=== PATIENT | female | born 1945 ===

== ENCOUNTER 2021-11-16 11:39 | Emergency (ER) | payer MEDICARE ==
[2021-11-16] MEDS ORDERED: SODIUM CHLORIDE 0.9% 500 ML 500 ML IV ONE (12:06)
--- NOTE | 2021-11-16 12:10 | Emergency Department Report ---
HPI - General Chief Complaint: Altered Mental Status Time Seen by Provider: 11/16/21 11:53 - HPI HPI: 76-year-old female with history of dementia and depression brought by EMS from a nearby [facility] due to altered mental status/bizarre behavior. Apparently, the patient was transferred from [facility] to the [facility] and has been there for the past 10 days of isolation. She has been cleared to discontinue her isolation and was discharged but the S team that was supposed to transport her refused to do so because the patient became very anxious and was with altered mental status. Every time the patient is asked a question, she starts to answer for about 1 second but then hyperventilates and stops answering. Calls made to the patient's sister, Jordana were apparently unanswered. Her phone number is [phone]. Further details of the HPI are highly limited due to the patient's current clinical condition. ED Past Medical Hx - Past Medical History Previous Medical History?: Yes Additional medical history: UNKNOWN - Medications Home Medications: Home Medications Medication Instructions Recorded Confirmed Last Taken Type Celecoxib [celeBREX] 100 mg PO QDAY 11/16/21 11/16/21 Unknown History Gabapentin 300 mg PO BID 11/16/21 11/16/21 Unknown History Quetiapine Fumarate 25 mg PO TID 11/16/21 11/16/21 Unknown History SEROquel 100 mg PO QHS 11/16/21 11/16/21 Unknown History Vitamin D3 5,000 UNIT 5,000 units PO TID 11/16/21 11/16/21 Unknown History ED Review of Systems ROS: Stated complaint: ALTERED MENTAL STATUS Other details as noted in HPI Comment: Unobtainable due to pts medical conditions Physical Exam - Physical Exam Vital Signs: Vital Signs 11/16/21 11:40 Temperature 98.0 F Pulse Rate 107 H Respiratory 18 Rate Blood Pressure 154/100 [Left] O2 Sat by Pulse 98 Oximetry Physical Exam: GENERAL: Well developed and well nourished. No acute distress HEAD: Normocephalic. No obvious signs of trauma. ENT: Dry mucous membranes. EYES: Extraocular movements are intact. Pupils are equal round and reactive to light bilaterally NECK: Supple. Full ROM is intact. Trachea is midline. LUNGS: Nonlabored breathing. Equal chest rise bilaterally. Clear to auscultation bilaterally. CARDIOVASCULAR: Regular rate and rhythm. No murmurs or rubs. VASCULAR: Cap refill < 2 seconds. 1+ edema of the bilateral lower extremities ABDOMEN: Abdomen is soft and nondistended. There is no significant tenderness, guarding or rebound. SKIN: Skin is warm and dry NEURO: Patient is awake, alert. The patient can state her name but when asked other questions she begins to answer and then mumbles off. She does however follow directions.. 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 No focal deficits. Normal motor and sensory exam throughout. MUSCULOSKELETAL: No obvious deformities. No significant tenderness. Normal ROM throughout. BACK/SPINE: No costovertebral angle tenderness. ED Course Vital Signs 11/16/21 11:40 Temperature 98.0 F Pulse Rate 107 H Respiratory 18 Rate Blood Pressure 154/100 [Left] O2 Sat by Pulse 98 Oximetry ED Medical Decision Making - Lab Data Result diagrams: 11/16/21 13:26 11/17/21 16:47 Lab Results 11/16/21 11/16/21 11/16/21 Range/Units 13:26 13:26 13:26 WBC 8.5 (4.5-11.0) K/mm3 RBC 4.44 (3.65-5.03) M/mm3 Hgb 13.0 (10.1-14.3) gm/dl Hct 39.1 (30.3-42.9) % MCV 88 (79-97) fl MCH 29 (28-32) pg MCHC 33 (30-34) % RDW 12.1 L (13.2-15.2) % Plt Count 274 (140-440) K/mm3 Lymph % (Auto) 16.1 (13.4-35.0) % Lawrence % (Auto) 7.6 H (0.0-7.3) % Eos % (Auto) 0.1 (0.0-4.3) % Baso % (Auto) 0.5 (0.0-1.8) % Lymph # (Auto) 1.4 (1.2-5.4) K/mm3 Lawrence # (Auto) 0.6 (0.0-0.8) K/mm3 Eos # (Auto) 0.0 (0.0-0.4) K/mm3 Baso # (Auto) 0.0 (0.0-0.1) K/mm3 Seg Neutrophils % 75.7 H (40.0-70.0) % Seg Neutrophils # 6.5 (1.8-7.7) K/mm3 Sodium 145 (137-145) mmol/L Potassium 3.2 L (3.6-5.0) mmol/L Chloride 108.8 H (98-107) mmol/L Carbon Dioxide 24 (22-30) mmol/L Anion Gap 15 mmol/L BUN 19 H (7-17) mg/dL Creatinine 0.7 (0.6-1.2) mg/dL Estimated GFR > 60 ml/min BUN/Creatinine Ratio 27 % Glucose 107 H (65-100) mg/dL Calcium 9.3 (8.4-10.2) mg/dL Total Bilirubin (0.1-1.2) mg/dL Direct Bilirubin (0-0.2) mg/dL Indirect Bilirubin mg/dL AST (5-40) units/L ALT (7-56) units/L Alkaline Phosphatase (35-129) units/L Ammonia (25-60) umol/L Total Protein (6.3-8.2) g/dL Albumin (3.9-5) g/dL Albumin/Globulin Ratio % Urine Color (Yellow) Urine Turbidity (Clear) Urine pH (5.0-7.0) Ur Specific [place] (1.003-1.030) Urine Protein (Negative) mg/dL Urine Glucose (UA) (Negative) mg/dL Urine Ketones (Negative) mg/dL Urine Blood (Negative) Urine Nitrite (Negative) Urine Bilirubin (Negative) Urine Urobilinogen (<2.0) mg/dL Ur Leukocyte Esterase (Negative) Urine WBC (Auto) (0.0-6.0) /HPF Urine RBC (Auto) (0.0-6.0) /HPF U Epithel Cells (Auto) (0-13.0) /HPF Urine Bacteria (Auto) (Negative) /HPF Urine Mucus /HPF Salicylates < 0.3 L (2.8-20.0) mg/dL Urine Opiates Screen Urine Methadone Screen Acetaminophen (10.0-30.0) ug/mL Ur Barbiturates Screen Ur Phencyclidine Scrn Ur Amphetamines Screen U Benzodiazepines Scrn Urine Cocaine Screen U Marijuana (THC) Screen Drugs of Abuse Note Plasma/Serum Alcohol (0-0.07) % 11/16/21 11/16/21 11/16/21 Range/Units 13:26 13:26 13:26 WBC (4.5-11.0) K/mm3 RBC (3.65-5.03) M/mm3 Hgb (10.1-14.3) gm/dl Hct (30.3-42.9) % MCV (79-97) fl MCH (28-32) pg MCHC (30-34) % RDW (13.2-15.2) % Plt Count (140-440) K/mm3 Lymph % (Auto) (13.4-35.0) % Lawrence % (Auto) (0.0-7.3) % Eos % (Auto) (0.0-4.3) % Baso % (Auto) (0.0-1.8) % Lymph # (Auto) (1.2-5.4) K/mm3 Lawrence # (Auto) (0.0-0.8) K/mm3 Eos # (Auto) (0.0-0.4) K/mm3 Baso # (Auto) (0.0-0.1) K/mm3 Seg Neutrophils % (40.0-70.0) % Seg Neutrophils # (1.8-7.7) K/mm3 Sodium (137-145) mmol/L Potassium (3.6-5.0) mmol/L Chloride (98-107) mmol/L Carbon Dioxide (22-30) mmol/L Anion Gap mmol/L BUN (7-17) mg/dL Creatinine (0.6-1.2) mg/dL Estimated GFR ml/min BUN/Creatinine Ratio % Glucose (65-100) mg/dL Calcium (8.4-10.2) mg/dL Total Bilirubin 0.70 (0.1-1.2) mg/dL Direct Bilirubin < 0.2 (0-0.2) mg/dL Indirect Bilirubin 0.5 mg/dL AST 11 (5-40) units/L ALT 13 (7-56) units/L Alkaline Phosphatase 103 (35-129) units/L Ammonia (25-60) umol/L Total Protein 6.9 (6.3-8.2) g/dL Albumin 3.7 L (3.9-5) g/dL Albumin/Globulin Ratio 1.2 % Urine Color (Yellow) Urine Turbidity (Clear) Urine pH (5.0-7.0) Ur Specific [place] (1.003-1.030) Urine Protein (Negative) mg/dL Urine Glucose (UA) (Negative) mg/dL Urine Ketones (Negative) mg/dL Urine Blood (Negative) Urine Nitrite (Negative) Urine Bilirubin (Negative) Urine Urobilinogen (<2.0) mg/dL Ur Leukocyte Esterase (Negative) Urine WBC (Auto) (0.0-6.0) /HPF Urine RBC (Auto) (0.0-6.0) /HPF U Epithel Cells (Auto) (0-13.0) /HPF Urine Bacteria (Auto) (Negative) /HPF Urine Mucus /HPF Salicylates (2.8-20.0) mg/dL Urine Opiates Screen Urine Methadone Screen Acetaminophen 5.0 L (10.0-30.0) ug/mL Ur Barbiturates Screen Ur Phencyclidine Scrn Ur Amphetamines Screen U Benzodiazepines Scrn Urine Cocaine Screen U Marijuana (THC) Screen Drugs of Abuse Note Plasma/Serum Alcohol < 0.01 (0-0.07) % 11/16/21 11/16/21 11/16/21 Range/Units 13:26 Unknown Unknown WBC (4.5-11.0) K/mm3 RBC (3.65-5.03) M/mm3 Hgb (10.1-14.3) gm/dl Hct (30.3-42.9) % MCV (79-97) fl MCH (28-32) pg MCHC (30-34) % RDW (13.2-15.2) % Plt Count (140-440) K/mm3 Lymph % (Auto) (13.4-35.0) % Lawrence % (Auto) (0.0-7.3) % Eos % (Auto) (0.0-4.3) % Baso % (Auto) (0.0-1.8) % Lymph # (Auto) (1.2-5.4) K/mm3 Lawrence # (Auto) (0.0-0.8) K/mm3 Eos # (Auto) (0.0-0.4) K/mm3 Baso # (Auto) (0.0-0.1) K/mm3 Seg Neutrophils % (40.0-70.0) % Seg Neutrophils # (1.8-7.7) K/mm3 Sodium (137-145) mmol/L Potassium (3.6-5.0) mmol/L Chloride (98-107) mmol/L Carbon Dioxide (22-30) mmol/L Anion Gap mmol/L BUN (7-17) mg/dL Creatinine (0.6-1.2) mg/dL Estimated GFR ml/min BUN/Creatinine Ratio % Glucose (65-100) mg/dL Calcium (8.4-10.2) mg/dL Total Bilirubin (0.1-1.2) mg/dL Direct Bilirubin (0-0.2) mg/dL Indirect Bilirubin mg/dL AST (5-40) units/L ALT (7-56) units/L Alkaline Phosphatase (35-129) units/L Ammonia 12.0 L (25-60) umol/L Total Protein (6.3-8.2) g/dL Albumin (3.9-5) g/dL Albumin/Globulin Ratio % Urine Color Yellow (Yellow) Urine Turbidity Clear (Clear) Urine pH 5.0 (5.0-7.0) Ur Specific [place] 1.025 (1.003-1.030) Urine Protein 30 mg/dl (Negative) mg/dL Urine Glucose (UA) Neg (Negative) mg/dL Urine Ketones Neg (Negative) mg/dL Urine Blood Sm (Negative) Urine Nitrite Neg (Negative) Urine Bilirubin Neg (Negative) Urine Urobilinogen < 2.0 (<2.0) mg/dL Ur Leukocyte Esterase Sm (Negative) Urine WBC (Auto) 14.0 H (0.0-6.0) /HPF Urine RBC (Auto) 2.0 (0.0-6.0) /HPF U Epithel Cells (Auto) < 1.0 (0-13.0) /HPF Urine Bacteria (Auto) 1+ (Negative) /HPF Urine Mucus Few /HPF Salicylates (2.8-20.0) mg/dL Urine Opiates Screen Negative Urine Methadone Screen Negative Acetaminophen (10.0-30.0) ug/mL Ur Barbiturates Screen Negative Ur Phencyclidine Scrn Negative Ur Amphetamines Screen Negative U Benzodiazepines Scrn Negative Urine Cocaine Screen Negative U Marijuana (THC) Screen Negative Drugs of Abuse Note Disclamer Plasma/Serum Alcohol (0-0.07) % - Radiology Data Radiology results: report reviewed - Medical Decision Making 76-year-old female with history of dementia and depression brought by EMS from a nearby [facility] due to altered mental status/bizarre behavior. Apparently, the patient was transferred from [facility] to the [facility] and has been there for the past 10 days of isolation. She has been cleared to discontinue her isolation and was discharged but the BLS team that was supposed to transport her refused to do so because the patient became very anxious and was with altered mental status. Every time the patient is asked a question, she starts to answer for about 1 second but then hyperventilates and stops answering. She is afebrile with normal vitals with the exception of mildly elevated heart rate in the 100s. Although I suspect that her altered mental status/behavior may be related to an underlying psych disorder and underlying baseline dementia we will perform broad work-up with a full set of labs, CT of the head to assess for evidence of intracranial bleeding, mass, edema, or other finding to explain the patient's presentation. We will give 500 cc of IV fluids and reassess. We will also attempt to contact the patient's caregiver for further history. The patient's nurse was able to get a hold of Alma, the patient's caregiver who stated that the patient has a history of bipolar/schizoaffective disorder and that she gets regularly scheduled ECT treatments. She was recently admitted to [facility] for suicidal ideation and homicidal ideation and this is where it was discovered that she had Covid. When asked about the patient's current mental state and tendency to begin answering questions but then drifts off, she states that she has had this type of behavior in the past but it is not her baseline. With this further history, I feel that the patient's current presentation likely represents a combination of her psychiatric diagnosis and possible acute encephalopathy. Therefore we will continue with the work-up. In addition, I have placed an ED hold order and a consult to mental health for possible [facility] psych placement Labs reveal no significant leukocytosis or anemia. Kidney function is within normal limits however, BUN to creatinine ratio is 27 consistent with dehydration. In addition, potassium is low at 3.2 which we will replete. Urinalysis reveals findings consistent with urinary tract infection. I have therefore ordered 1 dose of IV ceftriaxone and Keflex 500 mg twice daily x5 days. CT of the head reveals no acute abnormalities but chronic changes only. On repeat assessment at 3:45, the patient is now more conversive and able to participate somewhat in conversation. She states that she feels much better now. She is noted to have elevated blood pressure of 200/100. I have ordered IV labetalol Patient's blood pressure is improved after labetalol. She is medically cleared for psychiatric evaluation and placement. She may require additional medications for her blood pressure should remain elevated. Patient has been accepted as a transfer. Critical care attestation.: If time is entered above; I have spent that time in minutes in the direct care of this critically ill patient, excluding procedure time. ED Disposition Clinical Impression: UTI (urinary tract infection), Metabolic encephalopathy, Bipolar disorder, Schizoaffective disorder Disposition: [address] [place] [address] Is pt being admited?: No Condition: Stable Referrals: PRIMARY CAREMD [Primary Care Provider] - 3-5 Days
[2021-11-16 13:42] LABS: Basophils % (Auto) 0.5 % (0.0-1.8); Eosinophils % (Auto) 0.1 % (0.0-4.3); Hematocrit 39.1 % (30.3-42.9); Lymphocytes # (Auto) 1.4 K/mm3 (1.2-5.4); Lymphocytes % (Auto) 16.1 % (13.4-35.0); Mean Corpuscular HGB Conc 33 % (30-34); Mean Corpuscular Volume 88 fl (79-97); Monocytes # (Auto) 0.6 K/mm3 (0.0-0.8); Monocytes % (Auto) 7.6 % (0.0-7.3); Platelet Count 274 K/mm3 (140-440); Red Blood Count 4.44 M/mm3 (3.65-5.03); Red Cell Distribution Width 12.1 % (13.2-15.2)
[2021-11-16 14:01] LABS: Blood Urea Nitrogen 19 mg/dL (7-17); Calcium 9.3 mg/dL (8.4-10.2); Hemolysis Index 38
[2021-11-16 14:01] LABS: Bacteria,Urine 1+ /HPF (Negative); Bilirubin,Urine NEG (Negative); Blood,Urine SM (Negative); Color,Urine Yellow (Yellow); Mucus,Urine FEW /HPF; Urobilinogen,Urine < 2.0 mg/dL (<2.0)
[2021-11-16 14:02] LABS: BUN/Creatinine Ratio 27
[2021-11-16 14:03] LABS: Alanine Aminotransferase 13 units/L (7-56); Albumin 3.7 g/dL (3.9-5)
[2021-11-16 14:08] LABS: Amphetamine Screen,Urine Negative; Benzodiazepines Screen,Urine Negative; Cannabinoid Screen,Urine Negative; Cocaine Screen,Urine Negative; Methadone Screen,Urine Negative; Opiate Screen,Urine Negative
[2021-11-16 14:11] LABS: Bilirubin,Direct < 0.2 mg/dL (0-0.2)
--- NOTE | 2021-11-16 14:29 | Cat Scan Report ---
CT BRAIN: 11/16/2021 INDICATION / CLINICAL INFORMATION: AMS. COMPARISON: None available. FINDINGS: BRAIN/INTRACRANIAL STRUCTURES: Unenhanced CT images of the brain demonstrate no evidence of acute abn ormality. Ventricles and sulci are prominent in size, consistent with prominent diffuse cerebral atrophy. Exten sive chronic white matter hypoattenuation is present throughout the cerebral hemispheric white matter . There is no evidence of acute large vessel territory ischemic injury, hemorrhage, or mass. There are no abnormal extra-axial fluid collections. Atherosclerotic vascular calcifications are present in the distal internal carotid arteries and verte bral arteries. EXTRACRANIAL STRUCTURES: Unremarkable. IMPRESSION: No acute abnormality. Extensive chronic and age-related changes. All CT scans at this location are performed using dose reduction to ALARA by means of automated expos ure control. Signer Name: Hosea Lynch MD Signed: 11/16/2021 2:24 PM Workstation Name: [id number]
[2021-11-16] MEDS ORDERED: cefTRIAXone/NS 1 GM/50 ML 1 GM/50 ML BAG IV ONE (14:49)
[2021-11-16] MEDS ORDERED: POTASSIUM CHLORIDE ER 20 MEQ TAB PO ONE (14:49)
[2021-11-16] MEDS ORDERED: diphenhydrAMINE 25 MG CAP PO PRN (23:21)
[2021-11-16] MEDS ORDERED: LORazepam 2 MG/ML VIAL IM PRN (23:21)
[2021-11-16] MEDS: cephALEXin 500 MG CAP PO SCH (23:33)
[2021-11-17] MEDS: cephALEXin 500 MG CAP PO SCH (09:46)
[2021-11-17] MEDS ORDERED: POTASSIUM CHLORIDE ER 20 MEQ TAB PO SCH (10:00)
--- NOTE | 2021-11-17 11:05 | Consultation ---
History of Present Illness - Reason for Consult Consult date: 11/17/21 Reason for consult: anxious - History of Present Psychiatric Illness Per ER Note: 76-year-old female with history of dementia and depression brought by EMS from a nearby [facility] due to altered mental status/bizarre behavior. Apparently, the patient was transferred from [facility] to the [facility] and has been there for the past 10 days of isolation. She has been cleared to discontinue her isolation and was discharged but the S team that was supposed to transport her refused to do so because the patient became very anxious and was with altered mental status. Every time the patient is asked a question, she starts to answer for about 1 second but then hyperventilates and stops answering. Calls made to the patient's sister, Jordana were apparently u nanswered. Her phone number is [phone]. Further details of the HPI are highly limited due to the patient's current clinical condition. The patient was seen today. She is a 76y/o female who was brought in by EMS from a nearby [facility] for AMS. During my evaluation of the patient, she is lying down awake. She is a/o x 2. She patient has poor insight. She appears anxious. She is fidgety and moving about. She says she was living at a prison in [place], [place]. She denies SI/HI or hallucinations. I spoke to the patient's sister, Jordana. She says the patient had a nervous breakdown years ago because she could not conceive. She says since then she's been in mental hospitals. She says recently the patient was homicidal and suicidal and that's why she initially took her to the hospital. She says the patient threw away years of important paperwork of her. She says the patient has a history of bipolar and schizoaffective disorder, but hasn't been on her meds the way she needs to. She says the patient does not live in a prison but lives with her and has for about 18 years. Jordana says she would like the patient to be admitted to inpatient psych to get stable on her medications. PAST PSYCHIATRIC HISTORY: Unable to obtain PAST MEDICAL HISTORY: unknown Family Psychiatric History: None reported or documented SOCIAL HISTORY Marital Status: Living Arrangements: with sister Employment Status: Disabled Access to guns/weapons: Denies Education: History of Abuse:Denies Legal History: Denies REVIEW OF SYSTEMS Constitutional: Negative for weight loss ENT: Negative for stridor Respiratory: Negative for cough or hemoptysis All other systems reviewed and are negative MENTAL STATUS EXAMINATION General Appearance and Behavior: Age appropriate, good hygiene, wearing appropriate clothes. anxious Cooperation: Cooperative Psychomotor Behavior: Psychomotor normal Mood: anxious Affect and affective range: Constricted Thought Process: impaired Thought Content: Speech: Normal tone and pace Suicidal Ideation: Denies Homicidal Ideation: Denies Hallucinations: Denies Delusions: Denies Impulse Control: Limited Insight and Judgment: Limited insight and fair judgment Memory: Limited Attention: distracted Orientation: a/o x 3 Assessment (1) Bipolar Disorder Current Visit: Yes Status: Acute Treatment Plan 1013 Klonopin 0.25mg po BID Restarted home meds Disposition: Recommend acute psychiatric inpatient treatment Will follow. Thanks Case staffed with Dr. Fernandez Medications and Allergies Allergies Allergy/AdvReac Type Severity Reaction Status Date / Time No Known Allergies Allergy Unverified 11/16/21 13:04 Home Medications Medication Instructions Recorded Confirmed Last Taken Type Celecoxib [celeBREX] 100 mg PO QDAY 11/16/21 11/16/21 Unknown History Gabapentin 300 mg PO BID 11/16/21 11/16/21 Unknown History Quetiapine Fumarate 25 mg PO TID 11/16/21 11/16/21 Unknown History SEROquel 100 mg PO QHS 11/16/21 11/16/21 Unknown History Vitamin D3 5,000 UNIT 5,000 units PO TID 11/16/21 11/16/21 Unknown History Active Meds: Active Medications Cephalexin (Cephalexin 500 Mg Cap) 500 mg PO BID [facility]; Protocol Stop: 11/21/21 21:59 Last Admin: 11/17/21 09:46 Dose: 500 mg Diphenhydramine HCl (Diphenhydramine 25 Mg Cap) 50 mg PO QHS PRN PRN Reason: Insomnia Last Admin: 11/16/21 23:33 Dose: 50 mg Labetalol HCl (Labetalol 20 Mg/4 Ml Inj) 10 mg IV ONCE PRN PRN Reason: Hypertension Lorazepam (Lorazepam 2 Mg/Ml Vial) 2 mg IM Q4HR PRN PRN Reason: Agitation Last Admin: 11/17/21 06:15 Dose: 2 mg Potassium Chloride (Potassium Chloride Er 20 Meq Tab) 40 meq PO QDAY JAGJIT Last Admin: 11/17/21 09:45 Dose: 40 meq Mental Status Exam - Vital signs Last Vital Signs Temp 97.7 F 11/17/21 06:45 Pulse 76 11/17/21 08:01 Resp 25 H 11/17/21 08:01 BP 116/63 11/17/21 08:01 Pulse Ox 97 11/17/21 08:01 Results Result Diagrams: 11/16/21 13:26 11/16/21 13:26 Abnormal lab results 11/16/21 11/16/21 11/16/21 Range/Units 13:26 13:26 13:26 RDW 12.1 L (13.2-15.2) % Baxter % (Auto) 7.6 H (0.0-7.3) % Seg Neutrophils % 75.7 H (40.0-70.0) % Potassium 3.2 L (3.6-5.0) mmol/L Chloride 108.8 H (98-107) mmol/L BUN 19 H (7-17) mg/dL Glucose 107 H (65-100) mg/dL Ammonia (25-60) umol/L Albumin (3.9-5) g/dL Urine WBC (Auto) (0.0-6.0) /HPF Salicylates < 0.3 L (2.8-20.0) mg/dL Acetaminophen (10.0-30.0) ug/mL 11/16/21 11/16/21 11/16/21 Range/Units 13:26 13:26 13:26 RDW (13.2-15.2) % Baxter % (Auto) (0.0-7.3) % Seg Neutrophils % (40.0-70.0) % Potassium (3.6-5.0) mmol/L Chloride (98-107) mmol/L BUN (7-17) mg/dL Glucose (65-100) mg/dL Ammonia 12.0 L (25-60) umol/L Albumin 3.7 L (3.9-5) g/dL Urine WBC (Auto) (0.0-6.0) /HPF Salicylates (2.8-20.0) mg/dL Acetaminophen 5.0 L (10.0-30.0) ug/mL 11/16/21 Range/Units Unknown RDW (13.2-15.2) % Baxter % (Auto) (0.0-7.3) % Seg Neutrophils % (40.0-70.0) % Potassium (3.6-5.0) mmol/L Chloride (98-107) mmol/L BUN (7-17) mg/dL Glucose (65-100) mg/dL Ammonia (25-60) umol/L Albumin (3.9-5) g/dL Urine WBC (Auto) 14.0 H (0.0-6.0) /HPF Salicylates (2.8-20.0) mg/dL Acetaminophen (10.0-30.0) ug/mL All other labs normal.
[2021-11-17] MEDS ORDERED: clonazePAM 0.5 MG TAB PO SCH (12:00)
[2021-11-17] MEDS ORDERED: CELECOXIB 100 MG CAP PO SCH (12:00)
[2021-11-17] MEDS ORDERED: GABAPENTIN 300 MG CAP PO SCH (12:00)
[2021-11-17] MEDS ORDERED: CHOLECALCIFEROL (VIT D3) 5,000 UNIT TAB PO SCH (14:00)
[2021-11-17] MEDS ORDERED: QUETIAPINE FUMARATE 25 MG PO SCH (14:00)
[2021-11-17] MEDS: QUEtiapine 25 MG TAB PO SCH ×2 (14:16→22:11)
--- NOTE | 2021-11-17 16:31 | Event Note ---
Date: 11/17/21 76-year-old female with dementia and schizophrenia here with acute psychosis. Also diagnosed with UTI which is being treated with antibiotics. She was seen by the mental health/psychiatry team who recommended further inpatient treatment. There were no acute events overnight. Vital signs reviewed and are stable. Currently awaiting inpatient psychiatric facility placement.
[2021-11-17 17:31] LABS: Blood Urea Nitrogen 22 mg/dL (7-17); Calcium 9.1 mg/dL (8.4-10.2); Hemolysis Index 10
[2021-11-17 17:33] LABS: BUN/Creatinine Ratio 31
[2021-11-17 19:42] VITALS: BP 147/79
== END 2021-11-17 22:30 ==
LOC: ED 11:39
DX: F31.9 Bipolar disorder, unspecified (principal); N39.0 Urinary tract infection, site not specified; G93.41 Metabolic encephalopathy; F25.9 Schizoaffective disorder, unspecified; Z20.822 Contact with and (suspected) exposure to COVID-19
CPT/HCPCS: 36415; 70450; 80048; 80076; 80307; 81001; 82140; 85025; 86403; 87076; 87086; 87186; 96365; 96372; 96375; 99285; J0696; J2060; J3490; J7040; U0003; 80320; G0480

== ENCOUNTER 2022-05-24 09:29 | Inpatient (IN) | payer MEDICARE ==
--- NOTE | 2022-05-24 18:58 | Consultation ---
History of Present Illness - Reason for Consult Consult date: 05/24/22 Medical management Requesting physician: VIKY DOMINGUEZ - History of Present Illness 76 YO Female with Vascular Dementia with behavioral disturbance, Cerebral Atherosclerosis, OA, Peripheral Neuropathy, Bipolar Disorder, Schizophrenia, MDD, [place] admitted to [facility] for psychiatric stabilization. Consult placed by Dr. Dominguez for medical management. Patient seen and evaluated in the recreation room. Patient denies fever, chills, chest pain, palpitation, adductive cough, skin rash and recent contact, no supportive COVID-19. Patient appears to be at baseline level of cognition and function. No reported nursing events. Patient appears to be at baseline level of cognition and function. Past History Past Medical History: other (See HPI) Past Surgical History: No surgical history, Other (Reviewed) Social history: single. denies: smoking, alcohol abuse Family history: hypertension Medications and Allergies Allergies Allergy/AdvReac Type Severity Reaction Status Date / Time No Known Allergies Allergy Unverified 11/16/21 13:04 Home Medications Medication Instructions Recorded Confirmed Last Taken Type Celecoxib [celeBREX] 100 mg PO QDAY 11/16/21 05/24/22 Unknown History Gabapentin 300 mg PO BID 11/16/21 11/16/21 Unknown History Gabapentin [Neurontin] 300 mg PO TID 05/24/22 05/24/22 Unknown History Active Meds: Active Medications Celecoxib (Celecoxib 100 Mg Cap) 100 mg PO QDAY [facility] Cholecalciferol (Cholecalciferol (Vit D3) 5,000 Unit Tab) 5,000 unit PO QDAY [facility] Gabapentin (Gabapentin 300 Mg Cap) 300 mg PO BID [facility] Quetiapine Fumarate (Quetiapine 100 Mg Tab) 100 mg PO QHS [facility] Review of Systems Constitutional: no weight loss, no weight gain, no fever, no chills Ears, nose, mouth and throat: no ear pain, no nose pain, no nasal congestion, no nasal discharge, no sinus pressure Cardiovascular: no chest pain, no palpitations, no edema, no syncope Respiratory: no cough, no cough with sputum, no hemoptysis Gastrointestinal: no abdominal pain, no nausea, no constipation, no change in b owel habits Genitourinary Female: no pelvic pain, no flank pain, no dysuria, no urinary frequency, no urgency Rectal: no pain, no incontinence, no bleeding Musculoskeletal: no neck stiffness, no shooting arm pain, no low back pain, no shooting leg pain Integumentary: no rash, no sores, no jaundice Neurological: no transient paralysis, no paralysis, no parathesias, no seizures, no syncope, no tremors Psychiatric: depression, anxiety attacks, irritability, mood swings Endocrine: no cold intolerance, no polyphagia, no polydipsia, no nocturia Hematologic/Lymphatic: no easy bruising, no easy bleeding, no lymphadenopathy Allergic/Immunologic: no urticaria, no allergic rhinitis Exam - Constitutional General appearance: Present: no acute distress - EENT Eyes: Present: PERRL ENT: hearing decreased - Neck Neck: Present: supple, normal ROM - Respiratory Respiratory effort: normal Respiratory: bilateral: CTA - Cardiovascular Heart Sounds: Present: S1 & S2. Absent: rub, click - Extremities Extremities: pulses symmetrical, No edema Peripheral Pulses: within normal limits - Abdominal General gastrointestinal: Present: soft, non-tender, non-distended, normal bowel sounds Female genitourinary: Present: normal - Integumentary Integumentary: Present: clear, warm, dry - Musculoskeletal Musculoskeletal: gait normal, strength equal bilaterally - Psychiatric Psychiatric: cooperative, agitated - Neurologic Neurologic: CNII-XII intact, moves all extremities Assessment and Plan - Patient Problems (1) Vascular dementia with behavioral disturbance Current Visit: Yes Status: Acute Plan to address problem: Verbal prompting, verbal redirection, benzodiazepine therapy as clinically sada cated. (2) Cerebral atherosclerosis Current Visit: Yes Status: Acute Plan to address problem: Risk factor reduction, antiplatelet therapy, supportive care (3) Osteoarthritis Current Visit: Yes Status: Acute Plan to address problem: Pain control, supportive care. (4) Major depression Current Visit: Yes Status: Acute Plan to address problem: Continue medical management, supportive care. (5) Bipolar 1 disorder Current Visit: Yes Status: Acute Plan to address problem: Continue medical management, supportive care (6) Schizophrenia Current Visit: Yes Status: Acute Plan to address problem: Continue medical management, supportive care. (7) Advance care planning Current Visit: Yes Status: Acute Plan to address problem: Disease education data, care plan discussed, diagnoses discussed, prognosis discussed, patient is full code, +30 minutes. (8) Preventative health care Current Visit: Yes Status: Acute Plan to address problem: Patient counseled regarding home safety, compliant with medication, outpatient follow-up with primary care physician for all age and risk factor appropriate screening test. +30 minutes.
[2022-05-24] MEDS ORDERED: VITAMIN D3 5000 UNIT PO SCH (20:00)
[2022-05-24] MEDS: GABAPENTIN 300 MG CAP PO SCH (21:01)
[2022-05-24] MEDS ORDERED: NON-FORMULARY EACH (Seroquel 100 MG) PO SCH (22:00)
[2022-05-24] MEDS ORDERED: QUEtiapine 100 MG TAB PO SCH (22:00)
[2022-05-25 01:05] LABS: Basophils % (Auto) 0.4 % (0.0-1.8); Eosinophils % (Auto) 0.4 % (0.0-4.3); Hematocrit 37.6 % (30.3-42.9); Hemoglobin 12.5 gm/dl (10.1-14.3); Lymphocytes # (Auto) 1.4 K/mm3 (1.2-5.4); Lymphocytes % (Auto) 17.6 % (13.4-35.0); Mean Corpuscular HGB Conc 33 % (30-34); Mean Corpuscular Volume 86 fl (79-97); Monocytes # (Auto) 0.7 K/mm3 (0.0-0.8); Monocytes % (Auto) 8.5 % (0.0-7.3); Platelet Count 275 K/mm3 (140-440); Red Blood Count 4.37 M/mm3 (3.65-5.03); Red Cell Distribution Width 13.5 % (13.2-15.2)
[2022-05-25 01:27] LABS: Hepatitis C Virus Antibody Non-Reactive (NonReactive)
[2022-05-25 01:57] LABS: Hepatitis B Surface Antigen Non-Reactive (Negative)
[2022-05-25 02:46] LABS: Alanine Aminotransferase 7 units/L (7-56); Albumin 3.7 g/dL (3.9-5); Blood Urea Nitrogen 20 mg/dL (7-17); Calcium 9.7 mg/dL (8.4-10.2); Chol/HDL Ratio 3.64 %; HDL Cholesterol 50 mg/dL (40-59); Hemolysis Index 20; LDL Cholesterol,Direct 111 mg/dL (50-130)
[2022-05-25 02:57] LABS: BUN/Creatinine Ratio 29
--- NOTE | 2022-05-25 07:55 | History and Physical Report ---
GP History & Physical - History of Present Illness Date of admission: 05/24/22 Date of Examination: 05/25/22 Reason for Admission: Danger to self, Danger to others, Failure of Outpatient Treatment History of Present Illness: The patient is a 76 year old female with history of schizophrenia,and bipolar disorder who was admitted for stabilization. The patients presenting symptom at the ED include suicidal ideation, agitation, and noncompliant with medications. The patient was seen today. She reports worsening depression and anxiety " my industrial waste inspector wanted me to leave the house because I was not doing what I was supposed to be doing at home, I was not not cleaning, staying in bed and taking my medications late." She rates her depression and anxiety as 5/10. She denies suicidal ideation today " I had some earlier but I couldn't do anything." She denies hallucinations. PAST PSYCHIATRIC HISTORY: Diagnoses: schizophrenia, bipolar Suicide attempts or Self-harm behavior: Yes Prior psychiatric hospitalizations: Yes Substance Abuse history: Denies Previous psychiatric medications tried: Unable to recall Outpatient treatment: Yes PAST MEDICAL HISTORY: Family Psychiatric History None reported or documented SOCIAL HISTORY Marital Status: Living Arrangements: Lives with a industrial waste inspector Employment Status: Retired Access to guns/weapons: Denies Education: College History of Abuse: Denies Legal History: Denies REVIEW OF SYSTEMS Constitutional: Negative for weight loss ENT: Negative for stridor Respiratory: Negative for cough or hemoptysis All other systems reviewed and are negative MENTAL STATUS General Appearance and Behavior: age appropriate, good eye contact, cooperative, calm, pleasant Cooperation: Cooperative Psychomotor Behavior: within normal limits Mood: Depressed and anxious Affect and affective range: Congruent with stated mood Thought Process: goal oriented Thought Content: reality oriented Speech: Normal volume and Regular rate and rhythm Suicidal Ideation: Denies Homicidal Ideation: Denies HI Hallucinations:Denies Delusions: None elicited Impulse Control: Limited Insight and Judgment: Limited Memory: Limited Attention: Attentive Orientation: alert and oriented Diagnosis: Schizoaffective Treatment Plan Patient will be admitted for inpatient psychiatric evaluation, medication adjustment and close monitoring The patient's behavior, mood, sleep and appetite will be closely monitored. Patient will be enrolled in individual and group therapeutic sessions and encouraged to attend. Patient will be provided with a safe and structured environment. Patient's physical health needs will be addressed by the Hospitalist. Hospitalist Consulted Labs including CBC, CMP, Lipid profile and Hemoglobin A1C ordered Social Assessment will be completed and the Iron Melter will work with patient and family to ensure a suitable and safe disposition Medication adjustment will be made as clinically indicated Usual Wellness [employer]/Preservation: -Continue home meds The patient agreed on the treatment plan, understood the risk, benefit, alternative treatment, potential consequence of no treatment, and gave informed consent. Legal Status: voluntary Reaction to Hospitalization: Accepting Medications and Allergies Patient Problems: Current Active Problems Advance care planning (Acute) Bipolar 1 disorder (Acute) Cerebral atherosclerosis (Acute) Major depression (Acute) Osteoarthritis (Acute) Preventative health care (Acute) Schizophrenia (Acute) Vascular dementia with behavioral disturbance (Acute) Medications and Allergies Allergies Allergy/AdvReac Type Severity Reaction Status Date / Time No Known Allergies Allergy Unverified 11/16/21 13:04 Home Medications Medication Instructions Recorded Confirmed Last Taken Type Celecoxib [celeBREX] 100 mg PO QDAY 11/16/21 05/24/22 Unknown History Gabapentin 300 mg PO BID 11/16/21 05/24/22 Unknown History Gabapentin [Neurontin] 300 mg PO TID 05/24/22 05/24/22 Unknown History QUEtiapine [SEROquel] 50 mg PO QHS 05/24/22 05/24/22 Unknown History donepeziL [Aricept] 5 mg PO QHS 05/24/22 05/24/22 Unknown History hydrOXYzine PAMOATE [Vistaril] 1 cap PO BID 05/24/22 05/24/22 Unknown History traZODone [Desyrel] 50 mg PO QHS 05/24/22 05/24/22 Unknown History Active Meds: Active Medications Celecoxib (Celecoxib 100 Mg Cap) 100 mg PO [facility]DAY [facility] Cholecalciferol (Cholecalciferol (Vit D3) 5,000 Unit Tab) 5,000 unit PO QDAY [facility] Gabapentin (Gabapentin 300 Mg Cap) 300 mg PO BID [facility] Last Admin: 05/24/22 21:01 Dose: 300 mg Quetiapine Fumarate (Quetiapine 100 Mg Tab) 100 mg PO QHS [facility] Last Admin: 05/24/22 21:01 Dose: 100 mg Results - Results Labs/Vitals: Laboratory Last Values WBC 7.8 K/mm3 (4.5-11.0) 05/25/22 00:19 RBC 4.37 M/mm3 (3.65-5.03) 05/25/22 00:19 Hgb 12.5 gm/dl (10.1-14.3) 05/25/22 00:19 Hct 37.6 % (30.3-42.9) 05/25/22 00:19 MCV 86 fl (79-97) 05/25/22 00:19 MCH 29 pg (28-32) 05/25/22 00:19 MCHC 33 % (30-34) 05/25/22 00:19 RDW 13.5 % (13.2-15.2) 05/25/22 00:19 Plt Count 275 K/mm3 (140-440) 05/25/22 00:19 Lymph % (Auto) 17.6 % (13.4-35.0) 05/25/22 00:19 Oliver % (Auto) 8.5 % (0.0-7.3) H 05/25/22 00:19 Eos % (Auto) 0.4 % (0.0-4.3) 05/25/22 00:19 Baso % (Auto) 0.4 % (0.0-1.8) 05/25/22 00:19 Lymph # (Auto) 1.4 K/mm3 (1.2-5.4) 05/25/22 00:19 Oliver # (Auto) 0.7 K/mm3 (0.0-0.8) 05/25/22 00:19 Eos # (Auto) 0.0 K/mm3 (0.0-0.4) 05/25/22 00:19 Baso # (Auto) 0.0 K/mm3 (0.0-0.1) 05/25/22 00:19 Seg Neutrophils % 73.1 % (40.0-70.0) H 05/25/22 00:19 Seg Neutrophils # 5.7 K/mm3 (1.8-7.7) 05/25/22 00:19 Sodium 144 mmol/L (137-145) 05/25/22 00:19 Potassium 4.2 mmol/L (3.6-5.0) 05/25/22 00:19 Chloride 107.4 mmol/L (98-107) H 05/25/22 00:19 Carbon Dioxide 25 mmol/L (22-30) 05/25/22 00:19 Anion Gap 16 mmol/L 05/25/22 00:19 BUN 20 mg/dL (7-17) H 05/25/22 00:19 Creatinine 0.7 mg/dL (0.6-1.2) 05/25/22 00:19 Estimated GFR > 60 ml/min 05/25/22 00:19 BUN/Creatinine Ratio 29 % 05/25/22 00:19 Glucose 106 mg/dL (65-100) H 05/25/22 00:19 POC Glucose 174 mg/dL (70-105) H 05/24/22 20:24 Hemoglobin A1c 6.0 % (4-6) 05/25/22 00:19 Calcium 9.7 mg/dL (8.4-10.2) 05/25/22 00:19 Total Bilirubin 0.30 mg/dL (0.1-1.2) 05/25/22 00:19 AST 11 units/L (5-40) 05/25/22 00:19 ALT 7 units/L (7-56) 05/25/22 00:19 Alkaline Phosphatase 179 units/L (35-129) H 05/25/22 00:19 Total Protein 6.7 g/dL (6.3-8.2) 05/25/22 00:19 Albumin 3.7 g/dL (3.9-5) L 05/25/22 00:19 Albumin/Globulin Ratio 1.2 % 05/25/22 00:19 Triglycerides 90 mg/dL (2-149) 05/25/22 00:19 Cholesterol 182 mg/dL (50-199) 05/25/22 00:19 LDL Cholesterol Direct 111 mg/dL (50-130) 05/25/22 00:19 HDL Cholesterol 50 mg/dL (40-59) 05/25/22 00:19 Cholesterol/HDL Ratio 3.64 % 05/25/22 00:19 TSH 2.170 mlU/mL (0.270-4.200) 05/25/22 00:19 Hepatitis A IgM Ab Non-reactive (NonReactive) 05/25/22 00:19 Hep Bs Antigen Non-reactive (Negative) 05/25/22 00:19 Hep B Core IgM Ab Non-reactive (NonReactive) 05/25/22 00:19 Hepatitis C Antibody Non-reactive (NonReactive) 05/25/22 00:19 Last Vital Signs Temp 98.7 F 05/24/22 22:00 Pulse 99 H 05/24/22 22:00 Resp 18 05/24/22 22:00 BP 148/87 05/24/22 22:00 Pulse Ox 95 05/24/22 22:00 Physical Examination - Constitutional Vitals: Vital Signs Temp Pulse Resp BP Pulse Ox 98.7 F 99 H 18 148/87 95 05/24/22 22:00 05/24/22 22:00 05/24/22 22:00 05/24/22 22:00 05/24/22 22:00 Temperature -Last 24 Hours Temperature 98.7 F Temperature 98.7 F Mental Status Exam - Vital signs Last Vital Signs Temp 98.7 F 05/24/22 22:00 Pulse 99 H 05/24/22 22:00 Resp 18 05/24/22 22:00 BP 148/87 05/24/22 22:00 Pulse Ox 95 05/24/22 22:00 Physician Certification - Certification Statement Physician Certification Statement: This is an acknowledgement statement that ANASTACIA SHELLEY is a 76 year old F who requires inpatient psychiatric admission for treatment which could reasonably be expected to improve the patient's condition for Estimated period of time patient will need to remain in the hospital: [ ] Plan for post-hospital care: [ ]
[2022-05-25] MEDS: hydrOXYzine PAMOATE 25 MG CAP PO SCH ×2 (09:22→22:17)
[2022-05-25] MEDS: GABAPENTIN 300 MG CAP PO SCH ×2 (09:23→22:16)
[2022-05-25] MEDS: CELECOXIB 100 MG CAP PO SCH (09:23)
[2022-05-25] MEDS: CHOLECALCIFEROL (VIT D3) 5,000 UNIT TAB PO SCH (09:24)
[2022-05-25] MEDS: DONEPEZIL 5 MG TAB PO SCH (22:16)
[2022-05-25] MEDS: QUEtiapine 25 MG TAB PO SCH (22:17)
--- NOTE | 2022-05-26 08:56 | Progress Note ---
Subjective Date of service: 05/26/22 Subjective Comment: 05/26: The patient was seen this morning at breakfast. She reports feeling better. The patient continues to endorse depression, rates as 5/10. She reports sleep and appetite as good. The patient denies any current suicidal/homicidal ideation and denies hallucinations. REVIEW OF SYSTEMS Constitutional: Negative for weight loss ENT: Negative for stridor Respiratory: Negative for cough or hemoptysis All other systems reviewed and are negative MENTAL STATUS General Appearance and Behavior: age appropriate, good eye contact, cooperative, calm Cooperation: Cooperative Psychomotor Behavior: within normal limits Mood: Depressed Affect and affective range: Congruent with stated mood Thought Process: goal oriented Thought Content: reality oriented Speech: Normal volume and Regular rate and rhythm Suicidal Ideation: Denies Homicidal Ideation: Denies HI Hallucinations:Denies Delusions: None elicited Impulse Control: Limited Insight and Judgment: Limited Memory: Limited Attention: Attentive Orientation: alert and oriented Diagnosis: Schizoaffective Treatment Plan Patient will be admitted for inpatient psychiatric evaluation, medication adjustment and close monitoring The patient's behavior, mood, sleep and appetite will be closely monitored. Patient will be enrolled in individual and group therapeutic sessions and encouraged to attend. Patient will be provided with a safe and structured environment. Patient's physical health needs will be addressed by the Hospitalist. Hospitalist Consulted Labs including CBC, CMP, Lipid profile and Hemoglobin A1C ordered Social Assessment will be completed and the Tow Driver will work with patient and family to ensure a suitable and safe disposition Medication adjustment will be made as clinically indicated Usual Wellness [place]ars[place]/Preservation: -Continue home meds The patient agreed on the treatment plan, understood the risk, benefit, alternative treatment, potential consequence of no treatment, and gave informed consent. Legal Status: voluntary Reaction to Hospitalization: Accepting Medications and Allergies Patient Problems: Current Active Problems Advance care planning (Acute) Bipolar 1 disorder (Acute) Cerebral atherosclerosis (Acute) Major depression (Acute) Osteoarthritis (Acute) Preventative health care (Acute) Schizophrenia (Acute) Vascular dementia with behavioral disturbance (Acute) Medications and Allergies Medications and Allergies Allergies Allergy/AdvReac Type Severity Reaction Status Date / Time No Known Allergies Allergy Unverified 11/16/21 13:04 Home Medications Medication Instructions Recorded Confirmed Last Taken Type Celecoxib [celeBREX] 100 mg PO QDAY 11/16/21 05/24/22 Unknown History Gabapentin 300 mg PO BID 11/16/21 05/24/22 Unknown History Gabapentin [Neurontin] 300 mg PO TID 05/24/22 05/24/22 Unknown History QUEtiapine [SEROquel] 50 mg PO QHS 05/24/22 05/24/22 Unknown History donepeziL [Aricept] 5 mg PO QHS 05/24/22 05/24/22 Unknown History hydrOXYzine PAMOATE [Vistaril] 1 cap PO BID 05/24/22 05/24/22 Unknown History traZODone [Desyrel] 50 mg PO QHS 05/24/22 05/24/22 Unknown History Active Meds: Active Medications Celecoxib (Celecoxib 100 Mg Cap) 100 mg PO QDAY [facility] Last Admin: 05/25/22 09:23 Dose: 100 mg Cholecalciferol (Cholecalciferol (Vit D3) 5,000 Unit Tab) 5,000 unit PO QDAY [facility] Last Admin: 05/25/22 09:24 Dose: 5,000 unit Donepezil HCl (Donepezil 5 Mg Tab) 5 mg PO QHS [facility] Last Admin: 05/25/22 22:16 Dose: 5 mg Gabapentin (Gabapentin 300 Mg Cap) 300 mg PO BID [facility] Last Admin: 05/25/22 22:16 Dose: 300 mg Hydroxyzine Pamoate (Hydroxyzine Pamoate 25 Mg Cap) 25 mg PO BID [facility] Last Admin: 05/25/22 22:17 Dose: 25 mg Quetiapine Fumarate (Quetiapine 25 Mg Tab) 50 mg PO QHS [facility] Last Admin: 05/25/22 22:17 Dose: 50 mg Results - Results Labs/Vitals: Laboratory Last Values WBC 7.8 K/mm3 (4.5-11.0) 05/25/22 00:19 RBC 4.37 M/mm3 (3.65-5.03) 05/25/22 00:19 Hgb 12.5 gm/dl (10.1-14.3) 05/25/22 00:19 Hct 37.6 % (30.3-42.9) 05/25/22 00:19 MCV 86 fl (79-97) 05/25/22 00:19 MCH 29 pg (28-32) 05/25/22 00:19 MCHC 33 % (30-34) 05/25/22 00:19 RDW 13.5 % (13.2-15.2) 05/25/22 00:19 Plt Count 275 K/mm3 (140-440) 05/25/22 00:19 Lymph % (Auto) 17.6 % (13.4-35.0) 05/25/22 00:19 Tucker % (Auto) 8.5 % (0.0-7.3) H 05/25/22 00:19 Eos % (Auto) 0.4 % (0.0-4.3) 05/25/22 00:19 Baso % (Auto) 0.4 % (0.0-1.8) 05/25/22 00:19 Lymph # (Auto) 1.4 K/mm3 (1.2-5.4) 05/25/22 00:19 Tucker # (Auto) 0.7 K/mm3 (0.0-0.8) 05/25/22 00:19 Eos # (Auto) 0.0 K/mm3 (0.0-0.4) 05/25/22 00:19 Baso # (Auto) 0.0 K/mm3 (0.0-0.1) 05/25/22 00:19 Seg Neutrophils % 73.1 % (40.0-70.0) H 05/25/22 00:19 Seg Neutrophils # 5.7 K/mm3 (1.8-7.7) 05/25/22 00:19 Sodium 144 mmol/L (137-145) 05/25/22 00:19 Potassium 4.2 mmol/L (3.6-5.0) 05/25/22 00:19 Chloride 107.4 mmol/L (98-107) H 05/25/22 00:19 Carbon Dioxide 25 mmol/L (22-30) 05/25/22 00:19 Anion Gap 16 mmol/L 05/25/22 00:19 BUN 20 mg/dL (7-17) H 05/25/22 00:19 Creatinine 0.7 mg/dL (0.6-1.2) 05/25/22 00:19 Estimated GFR > 60 ml/min 05/25/22 00:19 BUN/Creatinine Ratio 29 % 05/25/22 00:19 Glucose 106 mg/dL (65-100) H 05/25/22 00:19 POC Glucose 174 mg/dL (70-105) H 05/24/22 20:24 Hemoglobin A1c 6.0 % (4-6) 05/25/22 00:19 Calcium 9.7 mg/dL (8.4-10.2) 05/25/22 00:19 Total Bilirubin 0.30 mg/dL (0.1-1.2) 05/25/22 00:19 AST 11 units/L (5-40) 05/25/22 00:19 ALT 7 units/L (7-56) 05/25/22 00:19 Alkaline Phosphatase 179 units/L (35-129) H 05/25/22 00:19 Total Protein 6.7 g/dL (6.3-8.2) 05/25/22 00:19 Albumin 3.7 g/dL (3.9-5) L 05/25/22 00:19 Albumin/Globulin Ratio 1.2 % 05/25/22 00:19 Triglycerides 90 mg/dL (2-149) 05/25/22 00:19 Cholesterol 182 mg/dL (50-199) 05/25/22 00:19 LDL Cholesterol Direct 111 mg/dL (50-130) 05/25/22 00:19 HDL Cholesterol 50 mg/dL (40-59) 05/25/22 00:19 Cholesterol/HDL Ratio 3.64 % 05/25/22 00:19 TSH 2.170 mlU/mL (0.270-4.200) 05/25/22 00:19 Hepatitis A IgM Ab Non-reactive (NonReactive) 05/25/22 00:19 Hep Bs Antigen Non-reactive (Negative) 05/25/22 00:19 Hep B Core IgM Ab Non-reactive (NonReactive) 05/25/22 00:19 Hepatitis C Antibody Non-reactive (NonReactive) 05/25/22 00:19 Last Vital Signs Temp 97.2 F L 05/25/22 20:21 Pulse 95 H 05/26/22 08:40 Resp 16 05/26/22 08:40 BP 121/81 05/26/22 08:40 Pulse Ox 94 05/26/22 07:30
[2022-05-26] MEDS: CHOLECALCIFEROL (VIT D3) 5,000 UNIT TAB PO SCH (10:18)
[2022-05-26] MEDS: GABAPENTIN 300 MG CAP PO SCH ×2 (10:18→21:26)
[2022-05-26] MEDS: CELECOXIB 100 MG CAP PO SCH (10:18)
[2022-05-26] MEDS: hydrOXYzine PAMOATE 25 MG CAP PO SCH ×2 (10:18→21:26)
--- NOTE | 2022-05-26 14:17 | Progress Note ---
Assessment and Plan - Patient Problems (1) Vascular dementia with behavioral disturbance Current Visit: Yes Status: Acute Plan to address problem: Verbal prompting, verbal redirection, benzodiazepine therapy as clinically indicated. (2) Cerebral atherosclerosis Current Visit: Yes Status: Acute Plan to address problem: Risk factor reduction, antiplatelet therapy, supportive care (3) Osteoarthritis Current Visit: Yes Status: Acute Plan to address problem: Pain control, supportive care. (4) Major depression Current Visit: Yes Status: Acute Plan to address problem: Continue medical management, supportive care. (5) Bipolar 1 disorder Current Visit: Yes Status: Acute Plan to address problem: Continue medical management, supportive care (6) Schizophrenia Current Visit: Yes Status: Acute Plan to address problem: Continue medical management, supportive care. (7) Advance care planning Current Visit: Yes Status: Acute Plan to address problem: Disease education data, care plan discussed, diagnoses discussed, prognosis discussed, patient is full code, +30 minutes. (8) Preventative health care Current Visit: Yes Status: Acute Plan to address problem: Patient counseled regarding home safety, compliant with medication, outpatient follow-up with primary care physician for all age and risk factor appropriate screening test. +30 minutes. History Interval history: 76 YO Female with Vascular Dementia with behavioral disturbance, Cerebral Atherosclerosis, OA, Peripheral Neuropathy, Bipolar Disorder, Schizophrenia, MDD, TRINIDAD admitted to [facility] for psychiatric stabilization. Consult placed by Dr. Will for medical management. Patient seen and evaluated in the recreation room. No reported nursing events. Patient appears to be at baseline level of cognition and function. Hospitalist Physical - Constitutional Vitals: Temp Pulse Resp BP Pulse Ox 97.2 F L 95 H 18 121/81 94 05/25/22 20:21 05/26/22 08:40 05/26/22 10:18 05/26/22 08:40 05/26/22 07:30 General appearance: Present: no acute distress - EENT Eyes: Present: PERRL ENT: hearing decreased - Neck Neck: Present: supple - Respiratory Respiratory effort: normal Respiratory: bilateral: diminished - Cardiovascular Rhythm: regular Heart Sounds: Present: S1 & S2 - Extremities Extremities: no ischemia Peripheral Pulses: within normal limits - Abdominal General gastrointestinal: soft, non-tender, non-distended - Integumentary Integumentary: Present: clear, dry - Psychiatric Psychiatric: cooperative - Neurologic Neurologic: CNII-XII intact Results - Labs CBC & Chem 7: 05/25/22 00:19 05/25/22 00:19 Labs: Laboratory Last Values WBC 7.8 K/mm3 (4.5-11.0) 05/25/22 00:19 RBC 4.37 M/mm3 (3.65-5.03) 05/25/22 00:19 Hgb 12.5 gm/dl (10.1-14.3) 05/25/22 00:19 Hct 37.6 % (30.3-42.9) 05/25/22 00:19 MCV 86 fl (79-97) 05/25/22 00:19 MCH 29 pg (28-32) 05/25/22 00:19 MCHC 33 % (30-34) 05/25/22 00:19 RDW 13.5 % (13.2-15.2) 05/25/22 00:19 Plt Count 275 K/mm3 (140-440) 05/25/22 00:19 Lymph % (Auto) 17.6 % (13.4-35.0) 05/25/22 00:19 [place] % (Auto) 8.5 % (0.0-7.3) H 05/25/22 00:19 Eos % (Auto) 0.4 % (0.0-4.3) 05/25/22 00:19 Baso % (Auto) 0.4 % (0.0-1.8) 05/25/22 00:19 Lymph # (Auto) 1.4 K/mm3 (1.2-5.4) 05/25/22 00:19 [place] # (Auto) 0.7 K/mm3 (0.0-0.8) 05/25/22 00:19 Eos # (Auto) 0.0 K/mm3 (0.0-0.4) 05/25/22 00:19 Baso # (Auto) 0.0 K/mm3 (0.0-0.1) 05/25/22 00:19 Seg Neutrophils % 73.1 % (40.0-70.0) H 05/25/22 00:19 Seg Neutrophils # 5.7 K/mm3 (1.8-7.7) 05/25/22 00:19 Sodium 144 mmol/L (137-145) 05/25/22 00:19 Potassium 4.2 mmol/L (3.6-5.0) 05/25/22 00:19 Chloride 107.4 mmol/L (98-107) H 05/25/22 00:19 Carbon Dioxide 25 mmol/L (22-30) 05/25/22 00:19 Anion Gap 16 mmol/L 05/25/22 00:19 BUN 20 mg/dL (7-17) H 05/25/22 00:19 Creatinine 0.7 mg/dL (0.6-1.2) 05/25/22 00:19 Estimated GFR > 60 ml/min 05/25/22 00:19 BUN/Creatinine Ratio 29 % 05/25/22 00:19 Glucose 106 mg/dL (65-100) H 05/25/22 00:19 POC Glucose 174 mg/dL (70-105) H 05/24/22 20:24 Hemoglobin A1c 6.0 % (4-6) 05/25/22 00:19 Calcium 9.7 mg/dL (8.4-10.2) 05/25/22 00:19 Total Bilirubin 0.30 mg/dL (0.1-1.2) 05/25/22 00:19 AST 11 units/L (5-40) 05/25/22 00:19 ALT 7 units/L (7-56) 05/25/22 00:19 Alkaline Phosphatase 179 units/L (35-129) H 05/25/22 00:19 Total Protein 6.7 g/dL (6.3-8.2) 05/25/22 00:19 Albumin 3.7 g/dL (3.9-5) L 05/25/22 00:19 Albumin/Globulin Ratio 1.2 % 05/25/22 00:19 Triglycerides 90 mg/dL (2-149) 05/25/22 00:19 Cholesterol 182 mg/dL (50-199) 05/25/22 00:19 LDL Cholesterol Direct 111 mg/dL (50-130) 05/25/22 00:19 HDL Cholesterol 50 mg/dL (40-59) 05/25/22 00:19 Cholesterol/HDL Ratio 3.64 % 05/25/22 00:19 TSH 2.170 mlU/mL (0.270-4.200) 05/25/22 00:19 Hepatitis A IgM Ab Non-reactive (NonReactive) 05/25/22 00:19 Hep Bs Antigen Non-reactive (Negative) 05/25/22 00:19 Hep B Core IgM Ab Non-reactive (NonReactive) 05/25/22 00:19 Hepatitis C Antibody Non-reactive (NonReactive) 05/25/22 00:19 [place]/IV: Voiding Method Toilet Active Medications - Current Medications Current Medications: Generic Name Dose Route Start Last Admin Trade Name Tita PRN Reason Stop Dose Admin Celecoxib 100 mg 05/25/22 10:00 05/26/22 10:18 Celecoxib 100 Mg Cap PO 100 mg QDAY JAGJIT Administration Cholecalciferol 5,000 unit 05/25/22 10:00 05/26/22 10:18 Cholecalciferol (Vit D3) 5,000 Unit Tab PO 5,000 unit QDAY JAGJIT Administration Donepezil HCl 5 mg 05/25/22 22:00 05/25/22 22:16 Donepezil 5 Mg Tab PO 5 mg QHS JAGJIT Administration Gabapentin 300 mg 05/24/22 22:00 05/26/22 10:18 Gabapentin 300 Mg Cap PO 300 mg BID JAGJIT Administration Hydroxyzine Pamoate 25 mg 05/25/22 10:00 05/26/22 10:18 Hydroxyzine Pamoate 25 Mg Cap PO 25 mg BID JAGJIT Administration Quetiapine Fumarate 50 mg 05/25/22 22:00 05/25/22 22:17 Quetiapine 25 Mg Tab PO 50 mg QHS JAGJIT Administration
[2022-05-26] MEDS: QUEtiapine 25 MG TAB PO SCH (21:26)
[2022-05-26] MEDS: DONEPEZIL 5 MG TAB PO SCH (21:26)
--- NOTE | 2022-05-27 09:46 | Progress Note ---
Subjective Date of service: 05/27/22 Subjective Comment: 05/27: The patient was seen today. She reports being anxious and depressed rating as 4/10. The patient states her mood is " pretty good." She denies any current suicidal/homicidal ideation and denies hallucinations. No changes made today. 05/26: The patient was seen this morning at breakfast. She reports feeling better. The patient continues to endorse depression, rates as 5/10. She reports sleep and appetite as good. The patient denies any current suicidal/homicidal ideation and denies hallucinations. REVIEW OF SYSTEMS Constitutional: Negative for weight loss ENT: Negative for stridor Respiratory: Negative for cough or hemoptysis All other systems reviewed and are negative MENTAL STATUS General Appearance and Behavior: age appropriate, good eye contact, cooperative, calm Cooperation: Cooperative Psychomotor Behavior: within normal limits Mood: Depressed Affect and affective range: Congruent with stated mood Thought Process: goal oriented Thought Content: reality oriented Speech: Normal volume and Regular rate and rhythm Suicidal Ideation: Denies Homicidal Ideation: Denies HI Hallucinations:Denies Delusions: None elicited Impulse Control: Limited Insight and Judgment: Limited Memory: Limited Attention: Attentive Orientation: alert and oriented Diagnosis: Schizoaffective Treatment Plan Patient will be admitted for inpatient psychiatric evaluation, medication adjustment and close monitoring The patient's behavior, mood, sleep and appetite will be closely monitored. Patient will be enrolled in individual and group therapeutic sessions and encouraged to attend. Patient will be provided with a safe and structured environment. Patient's physical health needs will be addressed by the Hospitalist. Hospitalist Consulted Labs including CBC, CMP, Lipid profile and Hemoglobin A1C ordered Social Assessment will be completed and the Safety Administrator will work with patient and family to ensure a suitable and safe disposition Medication adjustment will be made as clinically indicated Usual Wellness Sabianism/Preservation: -Continue home meds The patient agreed on the treatment plan, understood the risk, benefit, alternative treatment, potential consequence of no treatment, and gave informed consent. Legal Status: voluntary Reaction to Hospitalization: Accepting Medications and Allergies Patient Problems: Current Active Problems Advance care planning (Acute) Bipolar 1 disorder (Acute) Cerebral atherosclerosis (Acute) Major depression (Acute) Osteoarthritis (Acute) Preventative health care (Acute) Schizophrenia (Acute) Vascular dementia with behavioral disturbance (Acute) Medications and Allergies Medications and Allergies Allergies Allergy/AdvReac Type Severity Reaction Status Date / Time No Known Allergies Allergy Unverified 11/16/21 13:04 Home Medications Medication Instructions Recorded Confirmed Last Taken Type Celecoxib [celeBREX] 100 mg PO QDAY 11/16/21 05/24/22 Unknown History Gabapentin 300 mg PO BID 11/16/21 05/24/22 Unknown History Gabapentin [Neurontin] 300 mg PO TID 05/24/22 05/24/22 Unknown History QUEtiapine [SEROquel] 50 mg PO QHS 05/24/22 05/24/22 Unknown History donepeziL [Aricept] 5 mg PO QHS 05/24/22 05/24/22 Unknown History hydrOXYzine PAMOATE [Vistaril] 1 cap PO BID 05/24/22 05/24/22 Unknown History traZODone [Desyrel] 50 mg PO QHS 05/24/22 05/24/22 Unknown History Active Meds: Active Medications Celecoxib (Celecoxib 100 Mg Cap) 100 mg PO QDAY [facility] Last Admin: 05/26/22 10:18 Dose: 100 mg Cholecalciferol (Cholecalciferol (Vit D3) 5,000 Unit Tab) 5,000 unit PO QDAY [facility] Last Admin: 05/26/22 10:18 Dose: 5,000 unit Donepezil HCl (Donepezil 5 Mg Tab) 5 mg PO QHS [facility] Last Admin: 05/26/22 21:26 Dose: 5 mg Gabapentin (Gabapentin 300 Mg Cap) 300 mg PO BID [facility] Last Admin: 05/26/22 21:26 Dose: 300 mg Hydroxyzine Pamoate (Hydroxyzine Pamoate 25 Mg Cap) 25 mg PO BID [facility] Last Admin: 05/26/22 21:26 Dose: 25 mg Quetiapine Fumarate (Quetiapine 25 Mg Tab) 50 mg PO QHS [facility] Last Admin: 05/26/22 21:26 Dose: 50 mg Results - Results Labs/Vitals: Laboratory Last Values WBC 7.8 K/mm3 (4.5-11.0) 05/25/22 00:19 RBC 4.37 M/mm3 (3.65-5.03) 05/25/22 00:19 Hgb 12.5 gm/dl (10.1-14.3) 05/25/22 00:19 Hct 37.6 % (30.3-42.9) 05/25/22 00:19 MCV 86 fl (79-97) 05/25/22 00:19 MCH 29 pg (28-32) 05/25/22 00:19 MCHC 33 % (30-34) 05/25/22 00:19 RDW 13.5 % (13.2-15.2) 05/25/22 00:19 Plt Count 275 K/mm3 (140-440) 05/25/22 00:19 Lymph % (Auto) 17.6 % (13.4-35.0) 05/25/22 00:19 [place] % (Auto) 8.5 % (0.0-7.3) H 05/25/22 00:19 Eos % (Auto) 0.4 % (0.0-4.3) 05/25/22 00:19 Baso % (Auto) 0.4 % (0.0-1.8) 05/25/22 00:19 Lymph # (Auto) 1.4 K/mm3 (1.2-5.4) 05/25/22 00:19 [place] # (Auto) 0.7 K/mm3 (0.0-0.8) 05/25/22 00:19 Eos # (Auto) 0.0 K/mm3 (0.0-0.4) 05/25/22 00:19 Baso # (Auto) 0.0 K/mm3 (0.0-0.1) 05/25/22 00:19 Seg Neutrophils % 73.1 % (40.0-70.0) H 05/25/22 00:19 Seg Neutrophils # 5.7 K/mm3 (1.8-7.7) 05/25/22 00:19 Sodium 144 mmol/L (137-145) 05/25/22 00:19 Potassium 4.2 mmol/L (3.6-5.0) 05/25/22 00:19 Chloride 107.4 mmol/L (98-107) H 05/25/22 00:19 Carbon Dioxide 25 mmol/L (22-30) 05/25/22 00:19 Anion Gap 16 mmol/L 05/25/22 00:19 BUN 20 mg/dL (7-17) H 05/25/22 00:19 Creatinine 0.7 mg/dL (0.6-1.2) 05/25/22 00:19 Estimated GFR > 60 ml/min 08/06/22 00:19 BUN/Creatinine Ratio 29 % 05/25/22 00:19 Glucose 106 mg/dL (65-100) H 05/25/22 00:19 POC Glucose 174 mg/dL (70-105) H 05/24/22 20:24 Hemoglobin A1c 6.0 % (4-6) 05/25/22 00:19 Calcium 9.7 mg/dL (8.4-10.2) 05/25/22 00:19 Total Bilirubin 0.30 mg/dL (0.1-1.2) 05/25/22 00:19 AST 11 units/L (5-40) 05/25/22 00:19 ALT 7 units/L (7-56) 05/25/22 00:19 Alkaline Phosphatase 179 units/L (35-129) H 05/25/22 00:19 Total Protein 6.7 g/dL (6.3-8.2) 05/25/22 00:19 Albumin 3.7 g/dL (3.9-5) L 05/25/22 00:19 Albumin/Globulin Ratio 1.2 % 05/25/22 00:19 Triglycerides 90 mg/dL (2-149) 05/25/22 00:19 Cholesterol 182 mg/dL (50-199) 05/25/22 00:19 LDL Cholesterol Direct 111 mg/dL (50-130) 05/25/22 00:19 HDL Cholesterol 50 mg/dL (40-59) 05/25/22 00:19 Cholesterol/HDL Ratio 3.64 % 05/25/22 00:19 TSH 2.170 mlU/mL (0.270-4.200) 05/25/22 00:19 Hepatitis A IgM Ab Non-reactive (NonReactive) 05/25/22 00:19 Hep Bs Antigen Non-reactive (Negative) 05/25/22 00:19 Hep B Core IgM Ab Non-reactive (NonReactive) 05/25/22 00:19 Hepatitis C Antibody Non-reactive (NonReactive) 05/25/22 00:19 Last Vital Signs Temp 97.2 F L 05/25/22 20:21 Pulse 95 H 05/26/22 08:40 Resp 18 05/26/22 10:18 BP 121/81 05/26/22 08:40 Pulse Ox 94 05/26/22 07:30
[2022-05-27] MEDS: CELECOXIB 100 MG CAP PO SCH (10:05)
[2022-05-27] MEDS: hydrOXYzine PAMOATE 25 MG CAP PO SCH ×2 (10:06→21:39)
[2022-05-27] MEDS: GABAPENTIN 300 MG CAP PO SCH ×2 (10:06→21:39)
[2022-05-27] MEDS: CHOLECALCIFEROL (VIT D3) 5,000 UNIT TAB PO SCH (14:21)
[2022-05-27] MEDS: QUEtiapine 25 MG TAB PO SCH (21:39)
[2022-05-27] MEDS: DONEPEZIL 5 MG TAB PO SCH (21:39)
--- NOTE | 2022-05-28 09:31 | Progress Note ---
Subjective Date of service: 05/28/22 Subjective Comment: 05/28: The patient was seen today. She reports she is doing better. She denies any current suicidal/homicidal ideation and denies hallucinations. 05/27: The patient was seen today. She reports being anxious and depressed rating as 4/10. The patient states her mood is " pretty good." She denies any current suicidal/homicidal ideation and denies hallucinations. No changes made today. 05/26: The patient was seen this morning at breakfast. She reports feeling better. The patient continues to endorse depression, rates as 5/10. She reports sleep and appetite as good. The patient denies any current suicidal/homicidal ideation and denies hallucinations. REVIEW OF SYSTEMS Constitutional: Negative for weight loss ENT: Negative for stridor Respiratory: Negative for cough or hemoptysis All other systems reviewed and are negative MENTAL STATUS General Appearance and Behavior: age appropriate, good eye contact, cooperative, calm Cooperation: Cooperative Psychomotor Behavior: within normal limits Mood: Depressed Affect and affective range: Congruent with stated mood Thought Process: goal oriented Thought Content: reality oriented Speech: Normal volume and Regular rate and rhythm Suicidal Ideation: Denies Homicidal Ideation: Denies HI Hallucinations:Denies Delusions: None elicited Impulse Control: Limited Insight and Judgment: Limited Memory: Limited Attention: Attentive Orientation: alert and oriented Diagnosis: Schizoaffective Treatment Plan Patient will be admitted for inpatient psychiatric evaluation, medication adjustment and close monitoring The patient's behavior, mood, sleep and appetite will be closely monitored. Patient will be enrolled in individual and group therapeutic sessions and encouraged to attend. Patient will be provided with a safe and structured environment. Patient's physical health needs will be addressed by the Hospitalist. Hospitalist Consulted Labs including CBC, CMP, Lipid profile and Hemoglobin A1C ordered Social Assessment will be completed and the Seeing Eye Dog Trainer will work with patient and family to ensure a suitable and safe disposition Medication adjustment will be made as clinically indicated Usual Wellness Yazidi/Preservation: -Continue home meds The patient agreed on the treatment plan, understood the risk, benefit, alternative treatment, potential consequence of no treatment, and gave informed consent. Legal Status: voluntary Reaction to Hospitalization: Accepting Medications and Allergies Patient Problems: Current Active Problems Advance care planning (Acute) Bipolar 1 disorder (Acute) Cerebral atherosclerosis (Acute) Major depression (Acute) Osteoarthritis (Acute) Preventative health care (Acute) Schizophrenia (Acute) Vascular dementia with behavioral disturbance (Acute) Medications and Allergies Allergies Allergy/AdvReac Type Severity Reaction Status Date / Time No Known Allergies Allergy Unverified 11/16/21 13:04 Home Medications Medication Instructions Recorded Confirmed Last Taken Type Celecoxib [celeBREX] 100 mg PO QDAY 11/16/21 05/24/22 Unknown History Gabapentin 300 mg PO BID 11/16/21 05/24/22 Unknown History Gabapentin [Neurontin] 300 mg PO TID 05/24/22 05/24/22 Unknown History QUEtiapine [SEROquel] 50 mg PO QHS 05/24/22 05/24/22 Unknown History donepeziL [Aricept] 5 mg PO QHS 05/24/22 05/24/22 Unknown History hydrOXYzine PAMOATE [Vistaril] 1 cap PO BID 05/24/22 05/24/22 Unknown History traZODone [Desyrel] 50 mg PO QHS 05/24/22 05/24/22 Unknown History Active Meds: Active Medications Celecoxib (Celecoxib 100 Mg Cap) 100 mg PO QDAY [facility] Last Admin: 05/27/22 10:05 Dose: 100 mg Cholecalciferol (Cholecalciferol (Vit D3) 5,000 Unit Tab) 5,000 unit PO QDAY [facility] Last Admin: 05/27/22 14:21 Dose: 5,000 unit Donepezil HCl (Donepezil 5 Mg Tab) 5 mg PO QHS [facility] Last Admin: 05/27/22 21:39 Dose: 5 mg Gabapentin (Gabapentin 300 Mg Cap) 300 mg PO BID [facility] Last Admin: 05/27/22 21:39 Dose: 300 mg Hydroxyzine Pamoate (Hydroxyzine Pamoate 25 Mg Cap) 25 mg PO BID [facility] Last Admin: 05/27/22 21:39 Dose: 25 mg Quetiapine Fumarate (Quetiapine 25 Mg Tab) 50 mg PO QHS [facility] Last Admin: 05/27/22 21:39 Dose: 50 mg Results - Results Labs/Vitals: Laboratory Last Values WBC 7.8 K/mm3 (4.5-11.0) 05/25/22 00:19 RBC 4.37 M/mm3 (3.65-5.03) 05/25/22 00:19 Hgb 12.5 gm/dl (10.1-14.3) 05/25/22 00:19 Hct 37.6 % (30.3-42.9) 05/25/22 00:19 MCV 86 fl (79-97) 05/25/22 00:19 MCH 29 pg (28-32) 05/25/22 00:19 MCHC 33 % (30-34) 05/25/22 00:19 RDW 13.5 % (13.2-15.2) 05/25/22 00:19 Plt Count 275 K/mm3 (140-440) 05/25/22 00:19 Lymph % (Auto) 17.6 % (13.4-35.0) 05/25/22 00:19 [place] % (Auto) 8.5 % (0.0-7.3) H 05/25/22 00:19 Eos % (Auto) 0.4 % (0.0-4.3) 05/25/22 00:19 Baso % (Auto) 0.4 % (0.0-1.8) 05/25/22 00:19 Lymph # (Auto) 1.4 K/mm3 (1.2-5.4) 05/25/22 00:19 [place] # (Auto) 0.7 K/mm3 (0.0-0.8) 05/25/22 00:19 Eos # (Auto) 0.0 K/mm3 (0.0-0.4) 05/25/22 00:19 Baso # (Auto) 0.0 K/mm3 (0.0-0.1) 05/25/22 00:19 Seg Neutrophils % 73.1 % (40.0-70.0) H 05/25/22 00:19 Seg Neutrophils # 5.7 K/mm3 (1.8-7.7) 05/25/22 00:19 Sodium 144 mmol/L (137-145) 05/25/22 00:19 Potassium 4.2 mmol/L (3.6-5.0) 05/25/22 00:19 Chloride 107.4 mmol/L (98-107) H 05/25/22 00:19 Carbon Dioxide 25 mmol/L (22-30) 05/25/22 00:19 Anion Gap 16 mmol/L 05/25/22 00:19 BUN 20 mg/dL (7-17) H 05/25/22 00:19 Creatinine 0.7 mg/dL (0.6-1.2) 05/25/22 00:19 Estimated GFR > 60 ml/min 05/25/22 00:19 BUN/Creatinine Ratio 29 % 05/25/22 00:19 Glucose 106 mg/dL (65-100) H 05/25/22 00:19 POC Glucose 174 mg/dL (70-105) H 05/24/22 20:24 Hemoglobin A1c 6.0 % (4-6) 05/25/22 00:19 Calcium 9.7 mg/dL (8.4-10.2) 05/25/22 00:19 Total Bilirubin 0.30 mg/dL (0.1-1.2) 05/25/22 00:19 AST 11 units/L (5-40) 05/25/22 00:19 ALT 7 units/L (7-56) 05/25/22 00:19 Alkaline Phosphatase 179 units/L (35-129) H 05/25/22 00:19 Total Protein 6.7 g/dL (6.3-8.2) 05/25/22 00:19 Albumin 3.7 g/dL (3.9-5) L 05/25/22 00:19 Albumin/Globulin Ratio 1.2 % 05/25/22 00:19 Triglycerides 90 mg/dL (2-149) 05/25/22 00:19 Cholesterol 182 mg/dL (50-199) 05/25/22 00:19 LDL Cholesterol Direct 111 mg/dL (50-130) 05/25/22 00:19 HDL Cholesterol 50 mg/dL (40-59) 05/25/22 00:19 Cholesterol/HDL Ratio 3.64 % 05/25/22 00:19 TSH 2.170 mlU/mL (0.270-4.200) 05/25/22 00:19 Hepatitis A IgM Ab Non-reactive (NonReactive) 05/25/22 00:19 Hep Bs Antigen Non-reactive (Negative) 05/25/22 00:19 Hep B Core IgM Ab Non-reactive (NonReactive) 05/25/22 00:19 Hepatitis C Antibody Non-reactive (NonReactive) 05/25/22 00:19 Last Vital Signs Temp 98.7 F 05/27/22 20:06 Pulse 94 H 05/27/22 20:06 Resp 18 05/27/22 20:06 BP 134/75 05/27/22 20:06 Pulse Ox 94 05/27/22 20:06
[2022-05-28] MEDS: hydrOXYzine PAMOATE 25 MG CAP PO SCH ×2 (09:45→21:23)
[2022-05-28] MEDS: GABAPENTIN 300 MG CAP PO SCH ×2 (09:45→21:23)
[2022-05-28] MEDS: CHOLECALCIFEROL (VIT D3) 5,000 UNIT TAB PO SCH (09:46)
[2022-05-28] MEDS: CELECOXIB 100 MG CAP PO SCH (09:46)
[2022-05-28] MEDS: QUEtiapine 25 MG TAB PO SCH (21:24)
[2022-05-28] MEDS: DONEPEZIL 5 MG TAB PO SCH (21:24)
--- NOTE | 2022-05-29 07:38 | Progress Note ---
Assessment and Plan Assessment and Plan - Patient Problems (1) Vascular dementia with behavioral disturbance Current Visit: Yes Status: Acute Plan to address problem: Verbal prompting, verbal redirection, benzodiazepine therapy as clinically indicated. (2) Cerebral atherosclerosis Current Visit: Yes Status: Acute Plan to address problem: Risk factor reduction, antiplatelet therapy, supportive care (3) Osteoarthritis Current Visit: Yes Status: Acute Plan to address problem: Pain control, supportive care. (4) Major depression Current Visit: Yes Status: Acute Plan to address problem: Continue medical management, supportive care. (5) Bipolar 1 disorder Current Visit: Yes Status: Acute Plan to address problem: Continue medical management, supportive care (6) Schizophrenia Current Visit: Yes Status: Acute Plan to address problem: Continue medical management, supportive care. (7) Advance care planning Current Visit: Yes Status: Acute Plan to address problem: Disease education data, care plan discussed, diagnoses discussed, prognosis discussed, patient is full code, +30 minutes. (8) Preventative health care Current Visit: Yes Status: Acute Plan to address problem: Patient counseled regarding home safety, compliant with medication, outpatient follow-up with primary care physician for all age and risk factor appropriate screening test. +30 minutes. Subjective Date of service: 05/27/22 Principal diagnosis: Vascular dementia with behavioral disturbances Interval history: History Interval history: 76 YO Female with Vascular Dementia with behavioral disturbance, Cerebral Atherosclerosis, OA, Peripheral Neuropathy, Bipolar Disorder, Schizophrenia, MDD, [place] admitted to [facility] unit for psychiatric stabilization. Consult placed by Dr. Will for medical management. Patient seen and evaluated in the recreation room. No reported nursing events. Patient appears to be at baseline level of cognition and function. Objective - Constitutional Vitals: Vital Signs - 12hr 05/28/22 19:45 Temperature 97.8 F Pulse Rate 89 Respiratory 18 Rate Blood Pressure 134/74 O2 Sat by Pulse 91 Oximetry General appearance: Present: no acute distress, well-nourished - EENT Eyes: PERRL, EOM intact ENT: hearing intact, clear oral mucosa Ears: bilateral: normal - Neck Neck: supple, normal ROM - Respiratory Respiratory effort: normal Respiratory: bilateral: CTA - Breasts Breasts: normal - Cardiovascular Heart rate: 78 Rhythm: regular Heart Sounds: Present: S1 & S2. Absent: gallop, rub Extremities: pulses intact, No edema, normal color, Full ROM - Gastrointestinal General gastrointestinal: Present: soft, non-tender, non-distended, normal bowel sounds - Genitourinary Female genitourinary: normal - Integumentary Integumentary: clear, warm, dry - Musculoskeletal Musculoskeletal: 1, strength equal bilaterally - Neurologic Neurologic: moves all extremities - Psychiatric Psychiatric: memory intact, appropriate mood/affect, intact judgment & insight - Labs CBC & Chem 7: 05/25/22 00:19 05/25/22 00:19
--- NOTE | 2022-05-29 08:32 | Discharge Summary ---
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 The patients mood, cognition, behavior, motivation, compliance to treatment and appreciation on family/social support are improved and stabilized. At the time of discharge, the patient had no suicidal ideas, no homicidal ideas, no aggressive thoughts, no endangering behavior and no debilitating adverse effects. The patient agreed on the treatment plan, understood the risk, benefit, alternative treatment, potential consequence of no treatment, and gave informed consent. Progress Note: 05/28: The patient was seen today. She reports she is doing better. She denies any current suicidal/homicidal ideation and denies hallucinations. 05/27: The patient was seen today. She reports being anxious and depressed rating as 4/10. The patient states her mood is " pretty good." She denies any current suicidal/homicidal ideation and denies hallucinations. No changes made today. 05/26: The patient was seen this morning at breakfast. She reports feeling better. The patient continues to endorse depression, rates as 5/10. She reports sleep and appetite as good. The patient denies any current suicidal/homicidal ideation and denies hallucinations. Disposition: 30 STILL A PATIENT Allergies/Adverse Reactions: Allergies No Known Allergies Allergy (Unverified 11/16/21 13:04) Vital Signs: Last Vital Signs Temp 97.8 F 05/28/22 19:45 Pulse 89 05/28/22 19:45 Resp 18 05/28/22 19:45 BP 134/74 05/28/22 19:45 Pulse Ox 91 05/28/22 19:45 Last Lab: Laboratory Last Values WBC 7.8 K/mm3 (4.5-11.0) 05/25/22 00:19 RBC 4.37 M/mm3 (3.65-5.03) 05/25/22 00:19 Hgb 12.5 gm/dl (10.1-14.3) 05/25/22 00:19 Hct 37.6 % (30.3-42.9) 05/25/22 00:19 MCV 86 fl (79-97) 05/25/22 00:19 MCH 29 pg (28-32) 05/25/22 00:19 MCHC 33 % (30-34) 05/25/22 00:19 RDW 13.5 % (13.2-15.2) 05/25/22 00:19 Plt Count 275 K/mm3 (140-440) 05/25/22 00:19 Lymph % (Auto) 17.6 % (13.4-35.0) 05/25/22 00:19 [place] % (Auto) 8.5 % (0.0-7.3) H 05/25/22 00:19 Eos % (Auto) 0.4 % (0.0-4.3) 05/25/22 00:19 Baso % (Auto) 0.4 % (0.0-1.8) 05/25/22 00:19 Lymph # (Auto) 1.4 K/mm3 (1.2-5.4) 05/25/22 00:19 [place] # (Auto) 0.7 K/mm3 (0.0-0.8) 05/25/22 00:19 Eos # (Auto) 0.0 K/mm3 (0.0-0.4) 05/25/22 00:19 Baso # (Auto) 0.0 K/mm3 (0.0-0.1) 05/25/22 00:19 Seg Neutrophils % 73.1 % (40.0-70.0) H 05/25/22 00:19 Seg Neutrophils # 5.7 K/mm3 (1.8-7.7) 05/25/22 00:19 Sodium 144 mmol/L (137-145) 05/25/22 00:19 Potassium 4.2 mmol/L (3.6-5.0) 05/25/22 00:19 Chloride 107.4 mmol/L (98-107) H 05/25/22 00:19 Carbon Dioxide 25 mmol/L (22-30) 05/25/22 00:19 Anion Gap 16 mmol/L 05/25/22 00:19 BUN 20 mg/dL (7-17) H 05/25/22 00:19 Creatinine 0.7 mg/dL (0.6-1.2) 05/25/22 00:19 Estimated GFR > 60 ml/min 05/25/22 00:19 BUN/Creatinine Ratio 29 % 05/25/22 00:19 Glucose 106 mg/dL (65-100) H 05/25/22 00:19 POC Glucose 174 mg/dL (70-105) H 05/24/22 20:24 Hemoglobin A1c 6.0 % (4-6) 05/25/22 00:19 Calcium 9.7 mg/dL (8.4-10.2) 05/25/22 00:19 Total Bilirubin 0.30 mg/dL (0.1-1.2) 05/25/22 00:19 AST 11 units/L (5-40) 05/25/22 00:19 ALT 7 units/L (7-56) 05/25/22 00:19 Alkaline Phosphatase 179 units/L (35-129) H 05/25/22 00:19 Total Protein 6.7 g/dL (6.3-8.2) 05/25/22 00:19 Albumin 3.7 g/dL (3.9-5) L 05/25/22 00:19 Albumin/Globulin Ratio 1.2 % 05/25/22 00:19 Triglycerides 90 mg/dL (2-149) 05/25/22 00:19 Cholesterol 182 mg/dL (50-199) 05/25/22 00:19 LDL Cholesterol Direct 111 mg/dL (50-130) 05/25/22 00:19 HDL Cholesterol 50 mg/dL (40-59) 05/25/22 00:19 Cholesterol/HDL Ratio 3.64 % 05/25/22 00:19 TSH 2.170 mlU/mL (0.270-4.200) 05/25/22 00:19 Hepatitis A IgM Ab Non-reactive (NonReactive) 05/25/22 00:19 Hep Bs Antigen Non-reactive (Negative) 05/25/22 00: Hep B Core IgM Ab Non-reactive (NonReactive) 05/25/22 00:19 Hepatitis C Antibody Non-reactive (NonReactive) 05/25/22 00:19 Core Measure Documentation - Palliative Care Palliative Care/ Comfort Measures: Not Applicable - Core Measures Any of the following diagnoses?: none - VTE Discharge Requirements Deep Vein Thrombosis/Pulmonary Embolism Present on Admission: No Exam - Constitutional Vitals: Temp Pulse Resp BP Pulse Ox 97.8 F 89 18 134/74 91 05/28/22 19:45 05/28/22 19:45 05/28/22 19:45 05/28/22 19:45 05/28/22 19:45 Plan Activity: advance as tolerated Weight Bearing Status: Weight Bear as Tolerated Diet: regular Care Plan Goals: Maintain good and stable mental health. Plan of Treatment: The patient should be compliant with medications, not to use drugs and not to drink alcohol.The patient understands that if suicidal ideas, homicidal ideas, or any endangering thoughts/behavior arise, they should immediately seek for emergent assistance including but not limited to crisis hot line and emergency room. Follow up with outpatient Psychiatrist and PCP within 7 - 14 days of discharge. Follow up with: PRIMARY CARE, [Primary Care Provider] - 7 Days Prescriptions: traZODone [Desyrel] 50 mg PO QHS 30 Days #30 QUEtiapine [SEROquel] 50 mg PO QHS 30 Days #30 tablet Gabapentin 300 mg PO BID 30 Days #60 capsule
[2022-05-29 09:17] VITALS: BP 113/71
[2022-05-29] MEDS: GABAPENTIN 300 MG CAP PO SCH (09:40)
[2022-05-29] MEDS: hydrOXYzine PAMOATE 25 MG CAP PO SCH (09:40)
[2022-05-29] MEDS: CELECOXIB 100 MG CAP PO SCH (09:40)
[2022-05-29] MEDS: CHOLECALCIFEROL (VIT D3) 5,000 UNIT TAB PO SCH (09:50)
== END 2022-05-29 10:00 | disposition home or self-care (01) | DRG 885 ==
LOC: UNDOADMIN 09:29 → 3A 09:29 → 5A 18:45
PROVIDERS: ADMIT Psychiatry & Neurology Psychiatry; ATTEND Psychiatry & Neurology Psychiatry
DX: F25.9 Schizoaffective disorder, unspecified (principal); F01.51 Vascular dementia, unspecified severity, with behavioral disturbance; I67.2 Cerebral atherosclerosis; G62.9 Polyneuropathy, unspecified; F31.9 Bipolar disorder, unspecified; F41.1 Generalized anxiety disorder; M19.90 Unspecified osteoarthritis, unspecified site; Z82.49 Family history of ischemic heart disease and other diseases of the circulatory system
CPT/HCPCS: 36415; 80053; 80061; 80074; 82962; 83036; 84443; 85025; G0378